=== PATIENT | female | born 1985 | race Caucasian/White ===

== ENCOUNTER 2019-11-24 15:16 | Emergency (ER) | payer SELFPAY ==
[2019-11-24] MEDS ORDERED: OLANZapine 10 MG Vial IM STA ×2 (15:23→16:22)
[2019-11-24] MEDS: LORazepam 2 MG/ML SDV IM STA (15:40)
[2019-11-24] MEDS ORDERED: Sodium Chloride 0.9% 10 ML Syringe FLUSH PRN (16:21)
[2019-11-24] MEDS ORDERED: LORazepam 2 MG/ML SDV IVPUSH STA ×2 (16:22→17:56)
[2019-11-24] MEDS ORDERED: Sodium Chloride 0.9% 1,000 ML IV SCH ×2 (16:30→18:15)
[2019-11-24 17:02] LABS: ACETAMINOPHEN < 2 ug/mL (<2)
[2019-11-24] MEDS ORDERED: hydrOXYzine HCl 50 MG/ML SDV IM ONE (18:13)
[2019-11-24] MEDS ORDERED: Flumazenil 0.1 MG/ML 5 ML MDV IVPUSH STA (19:30)
--- NOTE | 2019-11-24 19:30 | EDM.PDOCBH ---
ED HPI GENERAL MEDICAL PROBLEM - General Chief Complaint: Behavioral/Psych Stated Complaint: ALTERED MENTAL STATUS Time Seen by Provider: 11/24/19 19:45 Source of Information: Reports: Patient History Limitations: Reports: No Limitations - History of Present Illness INITIAL COMMENTS - FREE TEXT/NARRATIVE: Patient presented to the ED because of changes in behavior and agitation. Apparently patient was at work and she was noticed to be agitated, restless and not herself. Her employer wants her to check just to be sure she is ok. I did talk to Lanny's mom and she said that her daughter doesn't srink alcohol, no history of drug use or mental illness. - Related Data Allergies Allergy/AdvReac Type Severity Reaction Status Date / Time No Known Allergies Allergy Verified 11/24/19 15:25 Home Meds: Home Meds NK [No Known Home Meds] 11/24/19 [History] Past Medical History WE[employer]ING [employer] History: Reports: Psychiatric History: Reports: Other (See Below) Other Psychiatric History: mother states that patient has some moments but is never suicidal, no hx of drugs as per her knowledge. Boyfriend had said to the mother that there was a time that she was also disoriented last year like this but not as bad as today. That time she just slept all day and after a day she was normal. Endocrine/Metabolic History: Reports: Other (See Below) Other Endocrine/Metabolic History: hx of thyroid inflammation. - Past Surgical History Female Surgical History: Reports: Section Social & Family History - Family History Family Medical History: Noncontributory ED ROS GENERAL - Review of Systems Review Of Systems: See Below Constitutional: Reports: No Symptoms HEENT: Reports: No Symptoms Respiratory: Reports: No Symptoms Cardiovascular: Reports: No Symptoms Endocrine: Reports: No Symptoms GI/Abdominal: Reports: No Symptoms : Reports: No Symptoms Musculoskeletal: Reports: No Symptoms Neurological: Reports: Confusion Psychiatric: Reports: Agitation, Confusion ED EXAM, BEHAVIORAL HEALTH - Physical Exam Exam: See Below Exam Limited By: No Limitations General Appearance: Alert, WD/WN, No Apparent Distress Eye Exam: Bilateral Eye: PERRL Ears: Normal External Exam, Normal Canal, Hearing Grossly Normal Nose: Normal Inspection, Normal Mucosa, No Blood Throat/Mouth: Normal Inspection, Normal Lips, Normal Teeth, Normal Gums Head: Atraumatic, Normocephalic Neck: Normal Inspection, Supple, Non-Tender, Full Range of Motion Respiratory/Chest: No Respiratory Distress, Lungs Clear, Normal Breath Sounds Cardiovascular: Normal Peripheral Pulses, Regular Rate, Rhythm, No Edema, No Gallop GI/Abdominal: Normal Bowel Sounds, Soft, Non-Tender, No Organomegaly Extremities: Normal Inspection, Normal Range of Motion, Non-Tender Neurological: Alert, Normal Mood/Affect, CN II-XII Intact, Normal Cognition, Normal Gait, Normal Reflexes, No Motor/Sensory Deficits COURSE, BEHAVIORAL HEALTH COMP - Course Vital Signs: Last Vital Signs Temp Pulse 139 H 11/24/19 19:40 Resp 14 11/24/19 19:40 BP 163/109 H 11/24/19 19:40 Pulse Ox 100 11/24/19 19:40 Labs reviewed and discussed with patient and her mom and verbalized full understanding She was put on chemical restraint-ativan 2 mg IV and zyprexa 5 mg IM Four point restraint Another round of ativan 2 mg IV x1 and zyprexa 5 mg IM Flumazenil 0.2 mg IM x1 Orders, Labs, Meds: Active Orders 24 hr Category Date Time Status EKG Documentation Completion [RC] ASDIRECTED Care 11/24/19 17:50 Active Insert Urinary Catheter [OM.PC] Q24H Care 11/24/19 18:00 Ordered Nrsg Assess Restraint Init/Mon [RC] Q1H Care 11/24/19 20:25 Active Remove-Discontinue Non-Violent Restraints ONETIME Care 11/24/19 19:45 Ordered Urinary Catheter Assessment [RC] QSHIFT Care 11/24/19 20:55 Active THYROXINE (T4) FREE, DIRECT, S Stat Lab 11/24/19 16:28 Received Saline Lock Insert [OM.PC] Routine Oth 11/24/19 16:21 Ordered EKG 12 Lead [EK] Routine Ther 11/24/19 17:50 Ordered Laboratory Tests 11/24/19 11/24/19 11/24/19 Range/Units 16:28 16:28 16:28 WBC 10.5 (4.5-12.0) X10-3/uL RBC 4.49 (3.23-5.20) x10(6)uL Hgb 14.6 (11.5-15.5) g/dL Hct 43.4 (30.0-51.3) % MCV 96.6 H (80-96) fL MCH 32.6 (27.7-33.6) pg MCHC 33.7 (32.2-35.4) g/dL RDW 14.2 (11.5-15.5) % Plt Count 298 (125-369) X10(3)uL MPV 6.7 L (7.4-10.4) fL Neut % (Auto) 63.0 (46-82) % Lymph % (Auto) 28.4 (13-37) % [place] % (Auto) 7.5 (4-12) % Eos % (Auto) 0 L (1.0-5.0) % Baso % (Auto) 1 (0-2) % Neut # (Auto) 6.6 (1.6-8.3) # Lymph # (Auto) 3.0 (0.6-5.0) # [place] # (Auto) 0.8 (0.0-1.3) # Eos # (Auto) 0.0 (0.0-0.8) # Baso # (Auto) 0.1 (0.0-0.2) # Sodium 143 (135-145) mmol/L Potassium 3.4 L (3.5-5.3) mmol/L Chloride 103 (100-110) mmol/L Carbon Dioxide 18 L (21-32) mmol/L BUN 8 (7-18) mg/dL Creatinine 1.1 H (0.55-1.02) mg/dL Est Cr Clr Drug Dosing TNP Estimated GFR (MDRD) 57 L (>60) BUN/Creatinine Ratio 7.3 L (9-20) Glucose 162 H (80-116) mg/dL Calcium 8.3 L (8.6-10.2) mg/dL Total Bilirubin 0.3 (0.1-1.3) mg/dL AST 11 (5-25) IU/L ALT 19 (12-36) U/L Alkaline Phosphatase 72 (56-112) IU/L Total Protein 8.2 H (6.0-8.0) g/dL Albumin 4.2 (3.5-5.2) g/dL Globulin 4.0 g/dL Albumin/Globulin Ratio 1.1 TSH, Ultra Sensitive (0.36-3.74) IU/mL Urine Color (YELLOW) Urine Appearance (CLEAR) Urine pH (5.0-6.5) Ur Specific [place] (1.010-1.025) Urine Protein (NEGATIVE) mg/dL Urine Glucose (UA) (NORMAL) mg/dL Urine Ketones (NEGATIVE) mg/dL Urine Occult Blood (NEGATIVE) Urine Nitrite (NEGATIVE) Urine Bilirubin (NEGATIVE) Urine Urobilinogen (NEGATIVE) mg/dL Ur Leukocyte Esterase (NEGATIVE) U Hyaline Cast (Auto) (NS) Urine RBC (0-5) Urine WBC (0-5) Ur Squamous Epith Cells (NS,R,O) Urine Bacteria (NS) Urine HCG, Qual (NEGATIVE) Salicylates 4.2 (<2.8) mg/dL Urine Opiates Screen (NEGATIVE) Ur Oxycodone Screen (NEGATIVE) Ur Propoxyphene Screen (NEGATIVE) Acetaminophen < 2 L (<2) ug/mL Ur Barbituates Screen (NEGATIVE) Ur Tricyclics Screen (NEGATIVE) Ur Phencyclidine Scrn (NEGATIVE) Ur Amphetamine Screen (NEGATIVE) Urine MDMA Screen (NEGATIVE) U Benzodiazepines Scrn (NEGATIVE) U Cocaine Metab Screen (NEGATIVE) U Marijuana (THC) Screen (NEGATIVE) Ethyl Alcohol 0.04 H (<0.03) % 11/24/19 11/24/19 11/24/19 Range/Units 16:28 18:30 18:30 WBC (4.5-12.0) X10-3/uL RBC (3.23-5.20) x10(6)uL Hgb (11.5-15.5) g/dL Hct (30.0-51.3) % MCV (80-96) fL MCH (27.7-33.6) pg MCHC (32.2-35.4) g/dL RDW (11.5-15.5) % Plt Count (125-369) X10(3)uL MPV (7.4-10.4) fL Neut % (Auto) (46-82) % Lymph % (Auto) (13-37) % [place] % (Auto) (4-12) % Eos % (Auto) (1.0-5.0) % Baso % (Auto) (0-2) % Neut # (Auto) (1.6-8.3) # Lymph # (Auto) (0.6-5.0) # [place] # (Auto) (0.0-1.3) # Eos # (Auto) (0.0-0.8) # Baso # (Auto) (0.0-0.2) # Sodium (135-145) mmol/L Potassium (3.5-5.3) mmol/L Chloride (100-110) mmol/L Carbon Dioxide (21-32) mmol/L BUN (7-18) mg/dL Creatinine (0.55-1.02) mg/dL Est Cr Clr Drug Dosing Estimated GFR (MDRD) (>60) BUN/Creatinine Ratio (9-20) Glucose (80-116) mg/dL Calcium (8.6-10.2) mg/dL Total Bilirubin (0.1-1.3) mg/dL AST (5-25) IU/L ALT (12-36) U/L Alkaline Phosphatase (56-112) IU/L Total Protein (6.0-8.0) g/dL Albumin (3.5-5.2) g/dL Globulin g/dL Albumin/Globulin Ratio TSH, Ultra Sensitive 4.36 H (0.36-3.74) IU/mL Urine Color Yellow (YELLOW) Urine Appearance Clear (CLEAR) Urine pH 6.5 (5.0-6.5) Ur Specific [place] 1.015 (1.010-1.025) Urine Protein Trace (NEGATIVE) mg/dL Urine Glucose (UA) Normal (NORMAL) mg/dL Urine Ketones Negative (NEGATIVE) mg/dL Urine Occult Blood Negative (NEGATIVE) Urine Nitrite Negative (NEGATIVE) Urine Bilirubin Negative (NEGATIVE) Urine Urobilinogen Normal (NEGATIVE) mg/dL Ur Leukocyte Esterase Negative (NEGATIVE) U Hyaline Cast (Auto) Few H (NS) Urine RBC 0-5 (0-5) Urine WBC 0-5 (0-5) Ur Squamous Epith Cells Few H (NS,R,O) Urine Bacteria Few H (NS) Urine HCG, Qual Negative (NEGATIVE) Salicylates (<2.8) mg/dL Urine Opiates Screen (NEGATIVE) Ur Oxycodone Screen (NEGATIVE) Ur Propoxyphene Screen (NEGATIVE) Acetaminophen (<2) ug/mL Ur Barbituates Screen (NEGATIVE) Ur Tricyclics Screen (NEGATIVE) Ur Phencyclidine Scrn (NEGATIVE) Ur Amphetamine Screen (NEGATIVE) Urine MDMA Screen (NEGATIVE) U Benzodiazepines Scrn (NEGATIVE) U Cocaine Metab Screen (NEGATIVE) U Marijuana (THC) Screen (NEGATIVE) Ethyl Alcohol (<0.03) % 11/24/19 Range/Units 18:30 WBC (4.5-12.0) X10-3/uL RBC (3.23-5.20) x10(6)uL Hgb (11.5-15.5) g/dL Hct (30.0-51.3) % MCV (80-96) fL MCH (27.7-33.6) pg MCHC (32.2-35.4) g/dL RDW (11.5-15.5) % Plt Count (125-369) X10(3)uL MPV (7.4-10.4) fL Neut % (Auto) (46-82) % Lymph % (Auto) (13-37) % [place] % (Auto) (4-12) % Eos % (Auto) (1.0-5.0) % Baso % (Auto) (0-2) % Neut # (Auto) (1.6-8.3) # Lymph # (Auto) (0.6-5.0) # [place] # (Auto) (0.0-1.3) # Eos # (Auto) (0.0-0.8) # Baso # (Auto) (0.0-0.2) # Sodium (135-145) mmol/L Potassium (3.5-5.3) mmol/L Chloride (100-110) mmol/L Carbon Dioxide (21-32) mmol/L BUN (7-18) mg/dL Creatinine (0.55-1.02) mg/dL Est Cr Clr Drug Dosing Estimated GFR (MDRD) (>60) BUN/Creatinine Ratio (9-20) Glucose (80-116) mg/dL Calcium (8.6-10.2) mg/dL Total Bilirubin (0.1-1.3) mg/dL AST (5-25) IU/L ALT (12-36) U/L Alkaline Phosphatase (56-112) IU/L Total Protein (6.0-8.0) g/dL Albumin (3.5-5.2) g/dL Globulin g/dL Albumin/Globulin Ratio TSH, Ultra Sensitive (0.36-3.74) IU/mL Urine Color (YELLOW) Urine Appearance (CLEAR) Urine pH (5.0-6.5) Ur Specific [place] (1.010-1.025) Urine Protein (NEGATIVE) mg/dL Urine Glucose (UA) (NORMAL) mg/dL Urine Ketones (NEGATIVE) mg/dL Urine Occult Blood (NEGATIVE) Urine Nitrite (NEGATIVE) Urine Bilirubin (NEGATIVE) Urine Urobilinogen (NEGATIVE) mg/dL Ur Leukocyte Esterase (NEGATIVE) U Hyaline Cast (Auto) (NS) Urine RBC (0-5) Urine WBC (0-5) Ur Squamous Epith Cells (NS,R,O) Urine Bacteria (NS) Urine HCG, Qual (NEGATIVE) Salicylates (<2.8) mg/dL Urine Opiates Screen Negative (NEGATIVE) Ur Oxycodone Screen Negative (NEGATIVE) Ur Propoxyphene Screen Negative (NEGATIVE) Acetaminophen (<2) ug/mL Ur Barbituates Screen Negative (NEGATIVE) Ur Tricyclics Screen Negative (NEGATIVE) Ur Phencyclidine Scrn Negative (NEGATIVE) Ur Amphetamine Screen Negative (NEGATIVE) Urine MDMA Screen Negative (NEGATIVE) U Benzodiazepines Scrn Positive H (NEGATIVE) U Cocaine Metab Screen Negative (NEGATIVE) U Marijuana (THC) Screen Negative (NEGATIVE) Ethyl Alcohol (<0.03) % Medications Discontinued Medications Generic Name Dose Route Start Last Admin Trade Name Freq PRN Reason Stop Dose Admin Flumazenil 0.2 mg 11/24/19 19:30 11/24/19 19:40 Romazicon IVPUSH 11/24/19 19:31 0.2 mg NOW STA Administration Hydroxyzine HCl 50 mg 11/24/19 18:13 11/24/19 19:25 Vistaril IM 11/24/19 18:14 Not Given ONETIME ONE Sodium Chloride 1,000 mls @ 999 mls/hr 11/24/19 16:30 11/24/19 17:00 Normal Saline IV 999 mls/hr ASDIRECTED ETHEL Administration Sodium Chloride 1,000 mls @ 999 mls/hr 11/24/19 18:15 11/24/19 18:10 Normal Saline IV 999 mls/hr ASDIRECTED ETHEL Administration Lorazepam 1 mg 11/24/19 15:23 11/24/19 16:57 Ativan IM 11/24/19 15:24 1 mg NOW STA Administration Lorazepam 2 mg 11/24/19 16:22 11/24/19 16:40 Ativan IVPUSH 11/24/19 16:23 2 mg NOW STA Administration Lorazepam 2 mg 11/24/19 17:56 11/24/19 18:21 Ativan IVPUSH 11/24/19 17:57 2 mg NOW STA Administration Olanzapine 5 mg 11/24/19 15:23 11/24/19 15:40 Zyprexa IM 11/24/19 15:24 5 mg NOW STA Administration Olanzapine 5 mg 11/24/19 16:22 11/24/19 16:40 Zyprexa IM 11/24/19 16:23 5 mg NOW STA Administration Sodium Chloride 10 ml 11/24/19 16:21 Saline Flush FLUSH ASDIRECTED PRN Keep Vein Open Departure - Departure Time of Disposition: 19:30 Disposition: Home, Self-Care 01 Condition: Good Clinical Impression: Acute reaction to situational stress - Discharge Information Instructions: Adjustment Disorder, Adult Referrals: PCP,None [Primary Care Provider] - Forms: ED Department Discharge Additional Instructions: Please read discharge instructions on acute reaction to stressful situation Go for counseling for your stress, it will help a lot Sepsis Event Note - Focused Exam Vital Signs: Vital Signs Pulse Resp BP Pulse Ox 11/24/19 19:40 139 H 14 163/109 H 100 Date Exam was Performed: 11/25/19 Time Exam was Performed: 07:07 - My Orders Last 24 Hours: My Active Orders 11/24/19 16:21 Saline Lock Insert [OM.PC] Routine 11/24/19 16:28 THYROXINE (T4) FREE, DIRECT, S Stat 11/24/19 17:50 EKG Documentation Completion [RC] ASDIRECTED EKG 12 Lead [EK] Routine 11/24/19 18:00 Insert Urinary Catheter [OM.PC] Q24H 11/24/19 19:45 Remove-Discontinue Non-Violent Restraints ONETIME 11/24/19 20:25 Nrsg Assess Restraint Init/Mon [RC] Q1H 11/24/19 20:55 Urinary Catheter Assessment [RC] QSHIFT - Assessment/Plan Last 24 Hours: My Active Orders 11/24/19 16:21 Saline Lock Insert [OM.PC] Routine 11/24/19 16:28 THYROXINE (T4) FREE, DIRECT, S Stat 11/24/19 17:50 EKG Documentation Completion [RC] ASDIRECTED EKG 12 Lead [EK] Routine 11/24/19 18:00 Insert Urinary Catheter [OM.PC] Q24H 11/24/19 19:45 Remove-Discontinue Non-Violent Restraints ONETIME 11/24/19 20:25 Nrsg Assess Restraint Init/Mon [RC] Q1H 11/24/19 20:55 Urinary Catheter Assessment [RC] QSHIFT
== END 2019-11-24 20:05 | disposition home or self-care (01) ==
LOC: FB.ED 15:16
DX: F43.0 Acute stress reaction (principal)
CPT/HCPCS: 80053; 80305; 80307; 81001; 81025; 84439; 84443; 85025; 93005; 96361; 96372; 96374; 96375; 96376; 99285; J2060; J3490; J7030; 99284